=== PATIENT | female | born 1940 | race Caucasian/White ===

== ENCOUNTER → 2016-05-03 | Outpatient (CLI) | payer OTHER ==
--- NOTE | 2016-05-03 16:20 | MA ---
Screening Digital Mammogram With iCAD Analysis Clinical Indications: Routine screening. Technique: Standard cephalocaudal and mediolateral oblique projections were obtained. This examinatio n was processed by the iCAD computer aided detection system. Comparison: April 2014, March 2014, February 2013, July 2010, May 2009, April 2008. Breast density: Type B; Scattered fibroglandular densities. Findings: CAD was reviewed. No masses, suspicious calcifications or other signs of malignancy are id entified. There has been no significant change in the appearance of either breast. Impression: Negative mammogram. BI-RADS 1. Recommendation: Routine mammographic screening in one year. [facility] will send a result letter to the patient. Negative mammography should not preclude additional workup of a clinically suspicious finding. The patient's information is entered into a reminder system with a target due date for her next mammo gram.
== END ==
LOC: FIMAGING 12:00
DX: Z12.31 Encounter for screening mammogram for malignant neoplasm of breast (principal)
CPT/HCPCS: G0202

== ENCOUNTER 2017-03-22 14:40 | Emergency (ER) | payer OTHER ==
[2017-03-22 14:49] VITALS: TEMP 98.4; O2SAT 91
--- NOTE | 2017-03-22 16:08 | EDPHY ---
H & P Time Seen by Provider: 03/22/17 15:19 HPI/ROS: CHIEF COMPLAINT: Fatigue, hypertension HISTORY OF PRESENT ILLNESS: This patient is a 76 y/o female with history of hypertension complaining of fatigue and elevated blood pressure noted last week at her primary care physician's office. She has taken metoprolol for several years, atenolol prior to this. , six days ago, she visited her PCP for treatment of a URI and sinus infection. She had been taking Sudafed for symptom relief and was hypertensive with systolic pressure above 180 at that visit. After this, she discontinued Sudafed as well as Advil, caffeine, and alcohol. Today is her last day of a course of Augmentin, which has helped to relieve her URI symptoms. Currently, she complains of headache and fatigue. She generally takes 3 Advil each morning for spinal stenosis, has not taken this due to concerns about her hypertension. She endorses recent increased stress at home. No chest pain, shortness of breath, dizziness, abdominal pain. REVIEW OF SYSTEMS: A 10 point review of systems was performed and is negative with the exception of the elements mentioned in the history of present illness. Past Medical/Surgical History: 1. Hypertension 2. Elevated liver enzymes Social History: and daughter at bedside. Nonsmoker. PCP: Nicole Denton. Smoking Status: Never smoked Physical Exam: General Appearance: Alert, appears anxious Eyes: Pupils equal and round, no conjunctival pallor or injection ENT, Mouth: Mucous membranes moist Neck: Normal inspection Respiratory: Lungs are clear to auscultation Cardiovascular: Regular rate and rhythm Gastrointestinal: Abdomen is soft and non- tender Neurological: A&O, nonfocal, normal gait Skin: Warm and dry, no rash Extremities: Nontender, no pedal edema Psychiatric: Mood and affect anxious Constitutional: Initial Vital Signs Temperature (C) 36.9 C 03/22/17 14:45 Heart Rate 54 L 03/22/17 14:45 Respiratory Rate 16 03/22/17 14:45 Blood Pressure 166/101 H 03/22/17 14:45 O2 Sat (%) 91 L 03/22/17 14:45 O2 Delivery Mode Room Air Allergies/Adverse Reactions: Sulfa (Sulfonamide Antibiotics) Allergy (Unknown, Verified 01/01/13 09:21) benzoin Allergy (Verified 01/01/13 09:21) Home Medications: Medication Instructions Recorded Lexapro 03/22/17 Lisinopril 10 mg PO DAILY #30 tablet 03/22/17 Metoprolol Succinate 03/22/17 Medical Decision Making ED Course/Re-evaluation: 76 y/o female with history of hypertension presents with ARMENDARIZ, fatigue, and hypertension. BP 184/115, heart rate 50. Plan for labs including CBC, chemistries, liver. Plan to consult with Dr. Denton regarding HTN medication change for this patient. Due to her low heart rate, I will not increase her dosage of metoprolol at this time. 16:[address] Lagunas, neon glass blower for Dr. Denton. The patient will continue taking metoprolol and add lisinopril 10mg to her daily regimen. Plan to administer 10mg PO Lisinopril here in the emergency department. Reassessed patient. Discussed new medications. Plan to d/c home in good condition with prescription for Lisinopril 10mg. The patient will follow up with Dr. Denton for continued management of her antihypertensives. Return precautions discussed. The patient and her family are comfortable with this plan. Differential Diagnosis: Differential diagnosis includes though not limited to hypertensive emergency, acute coronary syndrome, acute renal insufficiency, intracranial hemorrhage. - Data Points Laboratory Results: Laboratory Results 03/22/17 16:55 03/22/17 16:55 Medications Given: Discontinued Medications Lisinopril (Zestril) 10 mg PO EDNOW ONE Stop: 03/22/17 16:23 Last Admin: 03/22/17 16:47 Dose: 10 mg Departure - Departure Disposition: Home, Routine, Self-Care Clinical Impression: Hypertension Qualifiers: Hypertension type: essential hypertension Qualified Code(s): I10 - Essential ( primary) hypertension Condition: Good Instructions: Lisinopril (By mouth), Hypertension (ED) Additional Instructions: 1. Continue taking Metoprolol as prescribed. 2. Take Lisinopril as prescribed in addition to metoprolol. 3. Follow up with Dr. Denton this week for continued management of your medication regimen 4. Return the the emergency department for severe headache, chest pain, shortness of breath, fainting, or other worsening of condition. Referrals: Nicole Denton MD [Primary Care Provider] - 1-2 days without fail Prescriptions: Lisinopril 10 mg PO DAILY #30 tablet Report Scribed for: Dayana Garcia Report Scribed by: Ashleigh Abel Date of Report: 03/22/17 Time of Report: 16:08 Physician Review and Approval Statement: 03/22/17 16:08 Portions of this note were transcribed by a medical billing assistant. I personally performed a history, physical exam, medical decision making, and confirmed accuracy of information the transcribed note.
[2017-03-22] MEDS ORDERED: LISINOPRIL 20 MG TAB PO ONE (16:22)
[2017-03-22] MEDS ORDERED: LISINOPRIL 20 MG TAB ONE (16:41)
[2017-03-22 17:13] LABS: % IMMATURE GRANULYOCYTES 0.3 % (0.0-1.1); ABSOLUTE IMMATURE GRANULOCYTES 0.02 10^3/uL (0.00-0.10); ADD DIFF? NO; ADD MORPH? NO; ADD SCAN? NO; ATYPICAL LYMPHOCYTE FLAG 0 (0-99); FRAGMENT RBC FLAG 0 (0-99); HEMATOCRIT 46.1 % (38.0-47.0); LEFT SHIFT FLG 0 (0-99); LIPEMIA HEMOLYSIS FLAG 90 (0-99); MEAN CELL HEMOGLOBIN 32.5 pg (27.9-34.1); MEAN CELL HEMOGLOBIN CONCENTR. 34.7 g/dL (32.4-36.7); MEAN CELL VOLUME 93.5 fL (81.5-99.8); MEAN PLATELET VOLUME 9.6 fL (8.7-11.7); PLATELET CLUMPS FLAG 0 (0-99); PLATELET COUNT 246 10^3/uL (150-400); RED BLOOD CELL COUNT 4.93 10^6/uL (4.18-5.33); RED CELL DISTRIBUTION WIDTH 12.5 % (11.5-15.2)
[2017-03-22 17:29] VITALS: BP 184/115; PULSE 46; RESP 12
[2017-03-22 17:38] LABS: ALANINE AMINOTRANSFERASE 36 IU/L (9-52); ALBUMIN 4.5 g/dL (3.5-5.0); ALKALINE PHOSPHATASE 89 IU/L (38-126); ANION GAP 15 mEq/L (8-16); ASPARTATE AMINOTRANSFERASE 128 IU/L (14-46); BILIRUBIN,TOTAL 1.4 mg/dL (0.1-1.4); BILIRUBIN-CONJUGATED 0.4 mg/dL (0.0-0.5); CALCIUM 10.2 mg/dL (8.5-10.4); CARBON DIOXIDE 24 mEq/l (22-31); CHLORIDE 101 mEq/L (97-110); CREATININE 0.8 mg/dL (0.6-1.0); GLOMERULAR FILTRATION RATE > 60; GLUCOSE 103 mg/dL (70-100); SODIUM 140 mEq/L (134-144); TOTAL PROTEIN 7.5 g/dL (6.3-8.2)
== END 2017-03-22 18:09 | disposition home or self-care (01) ==
DX: I10 Essential (primary) hypertension (principal)

== ENCOUNTER → 2017-10-16 | Outpatient (CLI) | payer OTHER | LOC: FIMAGING 10:37 | PROVIDERS: ATTEND Internal Medicine | DX: Z12.31 Encounter for screening mammogram for malignant neoplasm of breast (principal) ==

== ENCOUNTER 2018-04-27 07:15 | Inpatient (IN) | payer OTHER ==
[2018-07-18] MEDS ORDERED: TRANEXAMIC ACID 3,000 MG in NS (SYRINGE) 50 ML IRR ONE (06:00)
[2018-07-18] MEDS ORDERED: ROPIVACAINE 0.2% 80 MG, EPINEPHrine 0.2 MG, KETOROLAC TROMETHAMINE 30 MG in SYRINGE 0 ML IU ONE (06:00)
--- NOTE | 2018-07-18 06:17 | PDHPUP ---
History & Physical Update H&P update statement: This history and physical update is based on an assessment of the patient which was completed after admission or registration (within 24 hours), but prior to the surgery/procedure. H&P update: H&P reviewed & patient examined, no change in patient's condition since H&P completed
[2018-07-18] MEDS ORDERED: TRANEXAMIC ACID 3,000 MG/50 ML BAG IRR ONE (06:55)
[2018-07-18] MEDS ORDERED: ceFAZolin 2 GM/DEXTROSE 100 ML IV ONE (11:20)
[2018-07-18] MEDS ORDERED: FAMOTIDINE 20 MG TAB PO ONE (11:20)
[2018-07-18] MEDS ORDERED: ACETAMINOPHEN 325 MG TAB PO ONE (11:20)
[2018-07-18] MEDS ORDERED: LR 1,000 ML IV ONE (11:21)
[2018-07-18] MEDS ORDERED: BISACODYL 10 MG SUPP PR PRN (12:54)
[2018-07-18] MEDS ORDERED: PROMETHAZINE HCL 25 MG SUPPR PR PRN (12:54)
[2018-07-18] MEDS ORDERED: DIPHENOXYLATE/ATROPINE LOMOTIL 1 TAB PO PRN (12:54)
[2018-07-18] MEDS ORDERED: ONDANSETRON DISINTEGRATING 4 MG TAB PO PRN (12:54)
[2018-07-18] MEDS ORDERED: POLYETHYLENE GLYCOL 3350 17 GM PKT PO PRN (12:54)
[2018-07-18] MEDS ORDERED: MAGNESIUM HYDROXIDE 30 ML UDCUP PO PRN (12:54)
[2018-07-18] MEDS ORDERED: TEMAZEPAM 15 MG CAP PO PRN (12:54)
[2018-07-18] MEDS ORDERED: CYCLOBENZAPRINE 10 MG TAB PO PRN (12:54)
[2018-07-18] MEDS ORDERED: diphenhydrAMINE 25 MG CAP PO PRN (12:54)
[2018-07-18] MEDS ORDERED: PROMETHAZINE HCL 25 MG/ML INJ IVP PRN (12:54)
[2018-07-18] MEDS ORDERED: LACTULOSE 20 GM/30 ML UDCUP PO PRN (12:54)
[2018-07-18] MEDS ORDERED: ONDANSETRON 4 MG/2 ML VIAL IVP PRN (12:54)
[2018-07-18] MEDS ORDERED: METOCLOPRAMIDE 10 MG/2 ML VIAL IVP PRN (12:54)
[2018-07-18] MEDS ORDERED: MIDAZOLAM 2 MG/2 ML VIAL ONE (12:56)
[2018-07-18] MEDS ORDERED: MIDAZOLAM 2 MG/2 ML VIAL IVP ONE (12:58)
[2018-07-18] MEDS ORDERED: D50W 25 GM/50 ML SYR IVP PRN (12:58)
--- NOTE | 2018-07-18 12:58 | PDANEPAE ---
ANE Past Medical History - Cardiovascular History Hx Hypertension: Yes Hx Arrhythmias: No Hx Chest Pain: No Hx Coronary Artery / Peripheral Vascular Disease: No Hx CHF / Valvular Disease: No Hx Palpitations: No - Pulmonary History Hx COPD: No Hx Asthma/Reactive Airway Disease: No Hx Recent Upper Respiratory Infection: No Hx Oxygen in Use at Home: No Hx Sleep Apnea: Yes Sleep Apnea Screening Result - Last Documented: Positive - Neurologic History Hx Cerebrovascular Accident: No Hx Seizures: No Hx Dementia: No - Endocrine History Hx Diabetes: Yes Endocrine History Comment: NIDDM no meds controlled with diet - Renal History Hx Renal Disorders: No - Liver History Hx Hepatic Disorders: Yes Hepatic History Comment: hx of high AST,fatty liver - Neurological & Psychiatric Hx Hx Neurological and Psychiatric Disorders: Yes Neurological / Psychiatric History Comment: essential tremor. anxiety - Cancer History Hx Cancer: Yes - Congenital Disorder History Hx Congenital Disorders: Yes Congenital History Comment: essential tremor - GI History Hx Gastrointestinal Disorders: Yes Gastrointestinal History Comment: diverticulitis, colectomy - Other Health History Other Health History: bug bite/severe itching - Chronic Pain History Chronic Pain: Yes (lower back) - Surgical History Prior Surgeries: none in last 5 yrs. bilat knee scopes prior to 5 yrs ago ANE Review of Systems Review of Systems: - Exercise capacity METS (RN): 4 METS ANE Patient History - Allergies Allergies/Adverse Reactions: Sulfa (Sulfonamide Antibiotics) Allergy (Unknown, Verified 06/26/18 12:35) Hives benzoin Allergy (Verified 06/26/18 12:35) Hives - Home Medications Home Medications: Lexapro 03/22/17 [Last Taken 07/18/18 07:30] Acetaminophen 06/26/18 [Last Taken 07/17/18 08:30] Advil 06/26/18 [Last Taken 07/10/18] Calcium 06/26/18 [Last Taken 07/10/18] Cholecalciferol (Vitamin D3) 06/26/18 [Last Taken 07/10/18] Lisinopril 06/26/18 [Last Taken 07/18/18 07:30] Magnesium 06/26/18 [Last Taken 07/10/18] - NPO status NPO Since - Liquids (Date): 07/18/18 NPO Since - Liquids (Time): 09:30 NPO Since - Solids (Date): 07/17/18 NPO Since - Solids (Time): 21:30 - Smoking Hx Smoking Status: Never smoked - Family Anes Hx Family Hx Anesthesia Complications: none ANE Labs/Vital Signs - Vital Signs Blood Pressure: 189/92 Heart Rate: 68 Respiratory Rate: 26 O2 Sat (%): 98 Height: 167.64 cm Weight: 82.554 kg ANE Physical Exam - Airway Neck exam: FROM Mallampati Score: Class 2 Mouth exam: normal dental/mouth exam - Pulmonary Pulmonary: no respiratory distress - Cardiovascular Cardiovascular: regular rate and rhythym - ASA Status ASA Status: II ANE Anesthesia Plan Anesthesia Plan: spinal Regional Anesthesia: single shot NB Total IV Anesthesia: Yes
[2018-07-18] MEDS ORDERED: PROPOFOL/EMULSION 500 MG/50 ML BOTTLE IV ONE (13:12)
[2018-07-18] MEDS ORDERED: LIDOCAINE 2% 100 MG/5 ML SYR ONE (13:12)
[2018-07-18] MEDS ORDERED: oxyCODONE IR 5 MG TAB PO PRN (13:48)
[2018-07-18] MEDS ORDERED: ALBUTEROL 3 ML DEYVIAL IH PRN (13:48)
[2018-07-18] MEDS ORDERED: fentaNYL 100 MCG/2 ML INJ IVP PRN (13:48)
[2018-07-18] MEDS ORDERED: HYDROCODONE/APAP 5/325 TAB PO PRN (13:48)
[2018-07-18] MEDS ORDERED: NALOXONE HCL 0.4 MG/ML INJ IVP PRN ×2 (13:48)
[2018-07-18] MEDS ORDERED: ACETAMINOPHEN 500 MG TAB PO PRN (13:48)
--- NOTE | 2018-07-18 13:53 | PDMN ---
Medical Necessity Medical necessity: Pt meets inpt criteria per MD order and [facility] [place] Knee Arthroplasty, Total, A-2 days, op: L TKA, inpt status for comorbidities including adv age (77 y/o), HTN, NIDDM, essential tremor, anxiety, hx diverticulitis and colectomy.
--- NOTE | 2018-07-18 15:47 | POSTOPPROG ---
Post Op Note Date of Operation: 07/18/18 Surgeon: Tess Storm Logistics Vice President: Ligia Loja PAC Anesthesiologist: Dr. Eric Jay Anesthesia: Spinal (adductor canal block), Other (Specify) Pre-op Diagnosis: left knee OA Post-op Diagnosis: same Indication: left knee pain Procedure: LTKA, robot assisted Findings: severe OA of left knee Inf/Abcess present in the surg proc area at time of surgery?: No EBL: 50-100
[2018-07-18] MEDS: HYDROmorphONE/DILAUDID 2 MG TAB PO PRN (16:47)
[2018-07-18] MEDS: INSULIN REGULAR HUMAN 100 UNIT/ML UNIT SC SCH ×2 (18:36→22:04)
[2018-07-18] MEDS: ACETAMINOPHEN 325 MG TAB PO SCH (18:58)
[2018-07-18] MEDS: LR 1,000 ML IV SCH (18:58)
--- NOTE | 2018-07-18 19:20 | SOAPPROG ---
BIRD Progress Note Assessment/Plan: Assessment: s/p left TKA, robot assist - procedure earlier today Plan: Begin discharge planning - possibly tomorrow. Sktates she has family members who will be caring for her post-operatively Continue pain medication - states she cannot take oxycodone or hydrocodone, she is willing to try Dilaudid Continue PT efforts - she will need to be cleared by PT prior to discharge Continue VTE ppx - aspirin 81 mg BID x 4 weeks, GAIL gibson, SCDs. She will continue to take aspirin and GAIL adamse at home 07/18/18 19:19 Subjective: Patient states she is having a lot of left knee pain currently and would like to have something more instantaneous than oral medication. She reports that she cannot tolerate oxycodone or hydrocodone. She denies shortness of breath, chest pain, fever, chills. Objective: Vital Signs Temp Pulse Resp BP Pulse Ox 35.9 C L 66 17 136/66 H 95 07/18/18 18:30 07/18/18 18:30 07/18/18 18:30 07/18/18 18:30 07/18/18 18:30 07/17/18 07/18/18 07/19/18 05:59 05:59 05:59 Intake Total 750 Output Total 30 Balance 720 Patient lying in bed, she appears to be in pain. Three of her family members are present. LLE: Surgical wound dressing is clean dry and intact. Lower leg compartments are soft and nontender. She can actively DF and PF left foot and great toe. Grossly NVI distally. ICD10 Worksheet Patient Problems: Problems Problem Status Onset Unilateral primary osteoarthritis, left knee Acute Hypertension Acute
[2018-07-18] MEDS: SENNOSIDES/DOCUSATE SODIUM TAB PO SCH (21:10)
[2018-07-18] MEDS: FAMOTIDINE 20 MG TAB PO SCH (21:10)
[2018-07-18] MEDS: ASPIRIN 81 MG CHEWABLE TAB PO SCH (21:10)
[2018-07-18] MEDS: ceFAZolin 2 GM/DEXTROSE 100 ML IV SCH (22:18)
[2018-07-19] MEDS: ACETAMINOPHEN 325 MG TAB PO SCH ×3 (01:27→13:57)
[2018-07-19] MEDS: HYDROmorphONE/DILAUDID 2 MG TAB PO PRN ×3 (04:28→14:15)
[2018-07-19] MEDS: LR 1,000 ML IV SCH (04:31)
[2018-07-19] MEDS: ceFAZolin 2 GM/DEXTROSE 100 ML IV SCH (05:49)
--- NOTE | 2018-07-19 08:07 | GOP ---
[f rep st] OPERATIVE REPORT DATE OF OPERATION: 07/18/2018 SURGEON: Forrest Storm MD WRONG ADDRESS CLERK: Laura Loja P.A.-C. ANESTHESIA: Spinal. PREOPERATIVE DIAGNOSIS: Left knee osteoarthritis. POSTOPERATIVE DIAGNOSIS: Left knee osteoarthritis. PROCEDURE PERFORMED: Left total knee arthroplasty with computer navigation, robotic assist. FINDINGS: ESTIMATED BLOOD LOSS: 30 cc. INDICATIONS: The patient is a 77-year-old female with severe and progressive pain and deformity of t he left knee unresponsive to conservative care. The risks and benefits of surgical intervention were explained in detail. DESCRIPTION OF PROCEDURE: The patient was brought to the operative room and placed on the table in t he supine position. Spinal anesthesia was induced without difficulty. A pneumatic tourniquet was appl ied about the left proximal thigh, and the leg was prepped and draped in a sterile fashion. The leg h older was applied. After exsanguination by elevation the tourniquet was inflated to 250 mmHg. Incision was made anterior medial from the tibial tuberosity to a point 2 cm proximal to the superior pole of the patella. Medial parapatellar arthrotomy was carried out from the superior pole of the p atella and posteriorly in line with the fibers of the Type II VMO. The medial collateral ligament wa s elevated and the infrapatellar fat pad was resected. The patella was everted and the articular surface was excised. A 35 mm patellar button was placed. Attention was turned first to the distal aspect of the femur. After exposure of the femur, 2 half pi ns were placed for fixation of the femoral array. In a similar fashion, 2 pins were placed anteromed ial on the tibia for fixation of the tibial array. External land marking and registration of the hip center was performed without difficulty. Internal femoral and tibial registration was carried out w ithout difficulty and the femoral and tibial checkpoints were placed and verified for accuracy. Attention was turned to the femur. The foot print for the size 4 femoral component was cut with the saw using the Biorasis robotic system and verified for accuracy against the CT based plan. In a similar f ashion, the saw was used to cut the footprint for the size 4 tibial component using the Biorasis system an d verified for accuracy against the CT based plan. The tibial articular surface was excised without d ifficulty, followed by the intercondylar box cut. The knee was extended and the remnants of the medial and lateral meniscus were excised. The posterior capsule was injected with ropivacaine, epinephrine and Toradol. A size 4 tibial tray was positioned . Trial reduction was then carried out. There was excellent range of motion, alignment, and stability using the 4 x 9 mm polyethylene. All trials were then removed. The joint was thoroughly irrigated and carefully dried. The press-fit c omponents were implanted. The permanent 4 x 9 mm polyethylene was placed without difficulty. The tourniquet was deflated and all bleeders were coagulated. The wound was thoroughly irrigated and closed using interrupted sutures of 2-0 Vicryl for the joint capsule. The subcu was closed with 3-0 V icryl and the skin with 4-0 Monocryl. Dermabond and Steri-Strips were applied followed by a compress amol dressing. The patient was then moved from the operating room to the recovery room in good conditi on, having tolerated the procedure well. PATHOLOGY: Severe medial and patellofemoral osteoarthritis. /[id number]/MODL
[2018-07-19 08:11] VITALS: BP 145/80
[2018-07-19] MEDS ORDERED: ESCITALOPRAM OXALATE 10 MG TAB PO SCH (09:00)
[2018-07-19] MEDS ORDERED: LISINOPRIL/HCTZ 10/12.5 MG 1 EA TAB PO SCH (09:00)
[2018-07-19] MEDS: ASPIRIN 81 MG CHEWABLE TAB PO SCH (09:40)
--- NOTE | 2018-07-19 09:40 | SOAPPROG ---
SOAP Progress Note Assessment/Plan: Assessment: s/p left TKA, robot assist - POD 1 Anemia: level is expected initially postop. Asymptomatic. Continue to monitor Plan: Continue discharge planning - likely today, but I would like for PT to evaluate her first. States she has family members who will be caring for her post- operatively Continue pain medication - states Dilaudid is working well and she can tolerate this. I will give her a Rx for d/c Continue PT efforts - she will need to be cleared by PT prior to discharge Continue VTE ppx - aspirin 81 mg BID x 4 weeks, GAIL gibson, SCDs. She will continue to take aspirin and GAIL angiee at home 07/19/18 09:39 07/19/18 09:43 Subjective: Patient states her left knee is still painful, but Dilaudid is helping and would like to get a prescription for this at the time of d/c. Patient feels that she may be ready to go home today but would like to see how she does in PT first. Patient denies shortness of breath, chest pain, fever, chills. Objective: Vital Signs Temp Pulse Resp BP Pulse Ox 37.4 C 76 14 145/80 H 98 07/19/18 08:10 07/19/18 08:10 07/19/18 08:10 07/19/18 08:10 07/19/18 08:10 Laboratory Results 07/19/18 04:59 07/19/18 04:59 07/18/18 07/19/18 07/20/18 05:59 05:59 05:59 Intake Total 2044 Output Total 730 Balance 1314 Patient resting comfortably in bed, no acute distress. LLE: Wound dressings are clean, dry and intact. Lower leg compartments are soft and nontender. Patient can actively DF and PF left foot and great toe against resistance. Grossly NVI distally. ICD10 Worksheet Patient Problems: Problems Problem Status Onset Unilateral primary osteoarthritis, left knee Acute Hypertension Acute
[2018-07-19] MEDS: FAMOTIDINE 20 MG TAB PO SCH (09:41)
[2018-07-19] MEDS: SENNOSIDES/DOCUSATE SODIUM TAB PO SCH (09:41)
[2018-07-19] MEDS: INSULIN REGULAR HUMAN 100 UNIT/ML UNIT SC SCH ×2 (09:44→12:50)
--- NOTE | 2018-07-19 11:16 | PDDCSUM ---
Discharge Summary Discharge Summary: ADMISSION DIAGNOSIS: Left knee severe degenerative arthritis DISCHARGE DIAGNOSIS: Left knee severe degenerative arthritis OPERATION PERFORMED: July 18, 2018 Left total knee arthroplasty, Shantanu robot assisted. POSTOPERATIVE COMPLICATIONS: None CONDITION ON DISCHARGE: Improved DESCRIPTION OF HOSPITAL COURSE: The patient was admitted to the hospital on the morning of surgery and underwent a left total knee arthroplasty, Shantanu robot assisted. Postoperatively, patient was treated with multimodal DVT prophylaxis, including aspirin, GAIL hose and SCDs. Patient was seen by PT and made good progress with ambulation and stairs. PT felt that since she has a lot of support at home (multiple family members) she was ok to discharge. On the first post-operative day the patients H&H was 11.0/32.0. Patient was able to void spontaneously. At the time of discharge, patient was afebrile, wound was clean and dry. Patient is walking with a walker. DISPOSITION: The patient was doing better than expected and is discharged home with the support of multiple family members including her , brother, and children. Some of her family members have had total joint replacements and are familiar with the recovery process. She will have outpatient PT in the next 1-2 weeks. Patient may progress to full weightbearing on the left lower extremity as tolerated. GAIL stockings for 2 weeks during the day time. Aspirin 81 mg BID for 4 weeks. Patient has a prescription for Dilaudid 2 mg on her chart for pain control. She cannot take Celebrex. The patient will be seen by Dr. Phipps office in approximately 3 weeks. If there are any problems, patient is to call Dr. Phipps office.
== END 2018-07-19 14:37 | disposition home or self-care (01) | DRG 470 ==
LOC: F1N 07-18 10:58 → OBSVTOIN 07-18 12:58 → F3N 07-18 15:31 → EDSTATUS 07-25 07:15
PROVIDERS: ADMIT Orthopaedic Surgery; ATTEND Orthopaedic Surgery
DX: M17.12 Unilateral primary osteoarthritis, left knee (principal); I10 Essential (primary) hypertension; G47.30 Sleep apnea, unspecified; E11.9 Type 2 diabetes mellitus without complications; F41.9 Anxiety disorder, unspecified; G25.0 Essential tremor
CPT/HCPCS: 97161-GP; J0171; J0690; J1885; J2001; J2250; J2270; J2704; J2795

== ENCOUNTER → 2018-07-12 | Outpatient (CLI) | payer OTHER | LOC: FIMAGING 16:12 | PROVIDERS: ATTEND Orthopaedic Surgery | DX: M17.12 Unilateral primary osteoarthritis, left knee (principal) ==